=== PATIENT | male | born 1995 | race Caucasian/White ===

== ENCOUNTER 2017-06-06 15:36 | Outpatient (CLI) | payer BC ==
--- NOTE | 2017-06-06 17:53 | MRI ---
LEFT KNEE MRI WITH AND WITHOUT CONTRAST: Date: 06/06/17 HISTORY: Knee pain x2 weeks. Injured left knee skiing. Patient heard a pop. COMPARISON: None. FINDINGS: Medial Meniscus: Intact. Lateral Meniscus: Vertical longitudinal tear posterior root attachment and posterior horn lateral meniscus. Full thickness rupture mid fibers anterior cruciate ligament. Posterior cruciate ligament is intact. There is a high grade tear of the medial collateral ligament, anterior longitudinal fibers. There is a split tear of the posterior oblique fibers. The medial meniscal femoral ligament is partially torn. Mild edema of the popliteus tendon. There is some thickening of the proximal fibers of lateral collat eral ligament. Biceps tendon is intact. The arcuate ligament has a Grade I injury, as well as the popliteal fibular ligament. No avulsive edema of the fibular head. Extensor Mechanism: Quadriceps tendon is intact. Bones: Pivot shift contusion of posterolateral tibial plateau and lateral femoral condyle. There is also con tusion of inferior pole of patella. There is also contusion of the medial femoral condyle. Cartilage: Patellofemoral compartment: Intact. Medial compartment: Intact. Lateral compartment: Intact. The posterior flexion zones are intact. IMPRESSION: 1. Full thickness rupture mid fibers anterior cruciate ligament. 2. Pivot shift contusion posterolateral tibial plateau, as well as lateral femoral condyle, as well as contusion of the medial femoral condyle. Contusion is also noted in the inferior patella. 3. Vertical longitudinal tear of the posterior horn lateral meniscus. 4. Grade I injury of the arcuate popliteal femoral ligament, as well as proximal fibers of lateral c ollateral ligament. 5. High grade tear of the proximal fibers of the anterior longitudinal component of the medial colla teral ligament with a longitudinal split of the posterior oblique fibers of the superficial MCL. Ther e is also high grade tear of the medial meniscal femoral ligament and edema in the medial femoral con dyle that may be avulsive edema. POS: [facility]
== END 2017-06-06 15:37 | disposition home or self-care (01) ==
LOC: TBSIIMAG 15:36
PROVIDERS: ATTEND Orthopaedic Surgery
DX: S83.8X2A Sprain of other specified parts of left knee, initial encounter (principal); M25.562 Pain in left knee; S83.282A Other tear of lateral meniscus, current injury, left knee, initial encounter; S80.12XA Contusion of left lower leg, initial encounter